=== PATIENT | male | born 1970 | race Caucasian/White ===

== ENCOUNTER 2017-07-05 15:22 | Emergency (ER) | payer BC ==
[2017-07-05 16:19] LABS: ABS Basophils 0 10^3/ul (0-0.2); ABS Eosinophils 0.1 10^3/ul (0-0.6); ABS Lymphocytes 1.7 10^3/ul (1.0-4.8); ABS Monocytes 0.6 10^3/ul (0-0.8); ABS Neutrophils 2.7 10^3/ul (1.5-7.7); ABS Nucleated RBC 0 10^3/ul; Eosinophil % 1.4 % (0-6); Hematocrit 41 % (42-52); Hemoglobin 14.6 g/dl (14.0-18.0); Lymphocyte % 33.7 % (25-47); Mean Corpuscular HGB Conc 35 g/dl (31-36); Mean Corpuscular Hemoglobin 36 pg (27-31); Mean Corpuscular Volume 101 fL (80-94); Mean Platelet Volume 8.8 um3 (7.4-10.4); Nucleated Red Blood Cells % 0.1; Platelet Count 144 10^3/ul (150-450); Red Cell Distribution Width 13 % (10.5-15); White Blood Count 5.1 10^3/ul (3.5-10.8)
[2017-07-05 16:57] LABS: EGFR Non-African American 99.3 (>60)
--- NOTE | 2017-07-05 17:14 | RAD ---
Indication: Chest pain. Comparison: No relevant prior exams available on the [facility] [place] [facility] for comparison. Technique: Upright AP 1644 hours Report: Clear lungs and pleural spaces. Negative for pneumothorax. The heart, pulmonary vasculature, and mediastinal contours are unremarkable. Unremarkable osseous structures and soft tissue contours. IMPRESSION: No evidence for acute intrathoracic disease.
[2017-07-05 17:55] VITALS: BP 138/83
--- NOTE | 2017-07-05 18:03 | ED ---
Kunal Ennis Gabriel, scribed for Alex Boston MD on 07/05/17 at 1609 . Palpitations / Dysrhythmia - HPI Summary HPI Summary: This patient is a 46 year [place] [facility]. Pt experienced palpitations an hour ago and had his friend take [facility]. There it was discovered he was in SVT and was given adenosine by EMS which reset SVT. The patient rates the pain 0/10 in severity. Patient reports feeling dizzy. Pt has no complaints currently. Pt states he does not abuse caffeine or drugs. - History of Current Complaint Chief Complaint: EDChestWallPain Time Seen by Provider: 07/05/17 15:57 Hx Obtained From: Patient Onset/Duration: Resolved Timing: Constant Severity Initially: Severe Severity Currently: None Character: Fast, Pounding Alleviating: Other - meds Associated Signs & Symptoms: Dizzy - Allergy/Home Medications Allergies/Adverse Reactions: Allergies Allergy/AdvReac Type Severity Reaction Status Date / Time Penicillins Allergy Hives Verified 07/05/17 16:01 Home Medications: Home Medications Lisinopril TAB* [Prinivil TAB*] 20 mg PO DAILY 07/05/17 [History Confirmed 07/05] Pantoprazole TAB (NF) [Protonix TAB (NF)] 40 mg PO DAILY 07/05/17 [History Confirmed 07/05/17] Simvastatin (NF) [Zocor (NF)] 40 mg PO DAILY 07/05/17 [History Confirmed ] PMH/Surg Hx/FS Hx/Imm Hx Cardiovascular History: Reports: Hx Supraventricular Ventricular Tachycardia Denies: Hx Auto Implanted Cardiovert Defib, Hx Cardiac Arrest, Hx Congestive Heart Failure Respiratory History: Denies: Hx Bronchopulmonary Dysplasia, Hx Chronic Obstructive Pulmonary Disease (COPD), Hx Lung Cancer, Hx Pleural Effusion GI History: Denies: Hx Crohn's Disease, Hx Gall Bladder Disease History: Denies: Hx Benign Prostatic Hyperplasia Infectious Disease History: No Infectious Disease History: Denies: Traveled Outside the [place] in Last 30 Days - Family History Known Family History: Positive: Hypertension, Other - HLD Negative: Renal Disease, Respiratory Disease - Social History Alcohol Use: Occasionally Substance Use Type: Reports: None Smoking Status (MU): Current Every Day Smoker Review of Systems Positive: Palpitations Neurological: Other - dizzy All Other Systems Reviewed And Are Negative: Yes Physical Exam - Summary Physical Exam Summary: VITAL SIGNS: Reviewed. GENERAL: Patient is a well-developed and nourished male who is lying comfortable in the stretcher. Patient is not in any acute respiratory distress. HEAD AND FACE: No signs of trauma. No ecchymosis, hematomas or skull depressions. No sinus tenderness. EYES: PERRLA, EOMI x 2, No injected conjunctiva, no nystagmus. EARS: Hearing grossly intact. Ear canals and tympanic membranes are within normal limits. MOUTH: Oropharynx within normal limits. NECK: Supple, trachea is midline, no adenopathy, no JVD, no carotid bruit, no c- spine tenderness, neck with full ROM. CHEST: Symmetric, no tenderness at palpation LUNGS: Clear to auscultation bilaterally. No wheezing or crackles. CVS: Regular rate and rhythm, S1 and S2 present, no murmurs or gallops appreciated. ABDOMEN: Soft, non-tender. No signs of distention. No rebound no guarding, and no masses palpated. Bowel sounds are normal. EXTREMITIES: FROM in all major joints, no edema, no cyanosis or clubbing. NEURO: Alert and oriented x 3. No acute neurological deficits. Speech is normal and follows commands. SKIN: Dry and warm Triage Information Reviewed: Yes Vital Signs On Initial Exam: Initial Vitals Pulse Resp Pulse Ox 89 21 95 07/05/17 15:33 07/05/17 15:33 07/05/17 15:33 Vital Signs Reviewed: Yes Diagnostics - Vital Signs Vital Signs Temp Pulse Resp BP Pulse Ox 07/05/17 15:39 98.1 F 84 16 127/88 99 07/05/17 15:34 88 23 127/88 95 07/05/17 15:33 89 21 95 - Laboratory Lab Results: Lab Results 07/05/17 07/05/17 07/05/17 Range/Units 16:09 16:09 16:09 WBC 5.1 (3.5-10.8) 10^3/ul RBC 4.10 (4.0-5.4) 10^6/ul Hgb 14.6 (14.0-18.0) g/dl Hct 41 L (42-52) % MCV 101 H (80-94) fL MCH 36 H (27-31) pg MCHC 35 (31-36) g/dl RDW 13 (10.5-15) % Plt Count 144 L (150-450) 10^3/ul MPV 8.8 (7.4-10.4) um3 Neut % (Auto) 53.0 (38-83) % Lymph % (Auto) 33.7 (25-47) % [place] % (Auto) 11.4 H (0-7) % Eos % (Auto) 1.4 (0-6) % Baso % (Auto) 0.5 (0-2) % Absolute Neuts (auto) 2.7 (1.5-7.7) 10^3/ul Absolute Lymphs (auto) 1.7 (1.0-4.8) 10^3/ul Absolute Monos (auto) 0.6 (0-0.8) 10^3/ul Absolute Eos (auto) 0.1 (0-0.6) 10^3/ul Absolute Basos (auto) 0 (0-0.2) 10^3/ul Absolute Nucleated RBC 0 10^3/ul Nucleated RBC % 0.1 Sodium 140 (139-145) mmol/L Potassium 3.7 (3.5-5.0) mmol/L Chloride 107 (101-111) mmol/L Carbon Dioxide 25 (22-32) mmol/L Anion Gap 8 (2-11) mmol/L BUN 12 (6-24) mg/dL Creatinine 0.83 (0.67-1.17) mg/dL Est GFR ( Amer) 127.7 (>60) Est GFR (Non-Af Amer) 99.3 (>60) BUN/Creatinine Ratio 14.5 (8-20) Glucose 105 H (70-100) mg/dL Lactic Acid 1.5 (0.5-2.0) mmol/L Calcium 8.9 (8.6-10.3) mg/dL Magnesium 2.0 (1.9-2.7) mg/dL Total Bilirubin 0.80 (0.2-1.0) mg/dL AST 25 (13-39) U/L ALT 30 (7-52) U/L Alkaline Phosphatase 39 (34-104) U/L Total Creatine Kinase 76 (10-223) U/L CK-MB (CK-2) 2.1 (0.6-6.3) ng/mL Troponin I 0.00 (<0.04) ng/mL B-Natriuretic Peptide ( - 100) pg/mL Total Protein 6.2 L (6.4-8.9) g/dL Albumin 4.0 (3.2-5.2) g/dL Globulin 2.2 (2-4) g/dL Albumin/Globulin Ratio 1.8 (1-3) TSH 1.16 (0.34-5.60) mcIU/mL 07/05/17 Range/Units 16:09 WBC (3.5-10.8) 10^3/ul RBC (4.0-5.4) 10^6/ul Hgb (14.0-18.0) g/dl Hct (42-52) % MCV (80-94) fL MCH (27-31) pg MCHC (31-36) g/dl RDW (10.5-15) % Plt Count (150-450) 10^3/ul MPV (7.4-10.4) um3 Neut % (Auto) (38-83) % Lymph % (Auto) (25-47) % [place] % (Auto) (0-7) % Eos % (Auto) (0-6) % Baso % (Auto) (0-2) % Absolute Neuts (auto) (1.5-7.7) 10^3/ul Absolute Lymphs (auto) (1.0-4.8) 10^3/ul Absolute Monos (auto) (0-0.8) 10^3/ul Absolute Eos (auto) (0-0.6) 10^3/ul Absolute Basos (auto) (0-0.2) 10^3/ul Absolute Nucleated RBC 10^3/ul Nucleated RBC % Sodium (139-145) mmol/L Potassium (3.5-5.0) mmol/L Chloride (101-111) mmol/L Carbon Dioxide (22-32) mmol/L Anion Gap (2-11) mmol/L BUN (6-24) mg/dL Creatinine (0.67-1.17) mg/dL Est GFR ( Amer) (>60) Est GFR (Non-Af Amer) (>60) BUN/Creatinine Ratio (8-20) Glucose (70-100) mg/dL Lactic Acid (0.5-2.0) mmol/L Calcium (8.6-10.3) mg/dL Magnesium (1.9-2.7) mg/dL Total Bilirubin (0.2-1.0) mg/dL AST (13-39) U/L ALT (7-52) U/L Alkaline Phosphatase (34-104) U/L Total Creatine Kinase (10-223) U/L CK-MB (CK-2) (0.6-6.3) ng/mL Troponin I (<0.04) ng/mL B-Natriuretic Peptide 14 ( - 100) pg/mL Total Protein (6.4-8.9) g/dL Albumin (3.2-5.2) g/dL Globulin (2-4) g/dL Albumin/Globulin Ratio (1-3) TSH (0.34-5.60) mcIU/mL Result Diagrams: 07/05/17 16:09 07/05/17 16:09 Lab Statement: Any lab studies that have been ordered have been reviewed, and results considered in the medical decision making process. - Radiology CXR Xray Interpretation: No Acute Changes - No evidence for acute intrathoracic disease. Dr. Boston has reviewed this report. Radiology Interpretation Completed By: Radiologist - EKG 16:14 Cardiac Rate: NL EKG Rhythm: Sinus Rhythm - at 86 BPM EKG Interpretation: No ST elevations Course/Dx - Course Assessment/Plan: 46-year-old male who presents to the emergency department with a chief complaint of palpitations and dizziness. As per EMS report the patient was in an SVT rhythm and he was given adenosine 6 mg. The patient converted to a normal sinus rhythm and since then the patient has been in a normal rhythm. Patient denies any chest pain or palpitations right now, denies any dizziness or shortness of breath. This resolved without any significant abnormality. EKG shows a normal sinus rhythm with no ST elevations. Chest x- ray shows no evidence of acute intrathoracic disease. Discussed the case with Dr. Simmons from cardiology and he will transfer the patient to be discharged home with a prescription for atenolol 25 mg Once a day. I discussed all the findings and test results with the patient. Patient was instructed to return to the emergency room immediately if any of the symptoms return or worsens. Plan of care was discussed with the patient and understands and agrees. All questions were answered at patient satisfaction. There were no further complaints or concerns. Lung exam before discharge: CTA B/L. Good air exchange. No wheezing or crackles heard. CVS: S1 and S2 present. No murmurs appreciated. Patient is alert and oriented x 3. Patient is hemodynamically stable. Patient will be discharged home with follow up PCP in the next 2-3 day - Diagnoses Provider Diagnoses: SVT (supraventricular tachycardia) Discharge - Sign-Out/Discharge Documenting (check all that apply): Discharge/Admit/Transfer - Discharge Plan Condition: Stable Disposition: HOME Prescriptions: Atenolol TAB* [Tenormin TAB* 25 MG] 25 mg PO DAILY #30 tab Patient Education Materials: Supraventricular Tachycardia (ED) Referrals: Cortez Graham DO [Medical Doctor] - Additional Instructions: Follow up with Dr. Graham, cardiology, in one week. RETURN TO THE EMERGENCY DEPARTMENT IF ANY NEW OR WORSENING SYMPTOMS. The documentation as recorded by the Kunal marr Gabriel accurately reflects the service I personally performed and the decisions made by , Alex Boston MD.
== END 2017-07-05 17:54 | disposition home or self-care (01) ==
LOC: ED 15:22
DX: I47.1 Supraventricular tachycardia (principal); F17.200 Nicotine dependence, unspecified, uncomplicated; Z88.0 Allergy status to penicillin
CPT/HCPCS: 36415; 71045; 80053; 82550; 82553; 83605; 83735; 83880; 84443; 84484; 85025; 93005; 99284